=== PATIENT | male | born 1985 | race Caucasian/White ===

== ENCOUNTER 2017-12-27 09:49 | Emergency (ER) | payer OTHER ==
[~2017-12-27] VITALS: Ht 177.8 cm; Wt 79.4 kg
[2017-12-27 09:59] VITALS: Ht 177.8 cm; Wt 79.4 kg
[2017-12-27] MEDS ORDERED: TORADOL10 MG PO (12:57)
[2017-12-27 13:49] VITALS: BP 142/86
== END 2017-12-27 13:50 | disposition home or self-care (01) ==
LOC: D.ER 09:49
DX: S61.217A Laceration without foreign body of left little finger without damage to nail, initial encounter (principal); W26.8XXA Contact with other sharp object(s), not elsewhere classified, initial encounter; Y93.89 Activity, other specified; Y92.89 Other specified places as the place of occurrence of the external cause